=== PATIENT | female | born 1960 | race African-American/Black ===

== ENCOUNTER 2019-01-11 09:43 | Emergency (ER) | payer OTHER ==
[~2019-01-11] VITALS: Ht 165.1 cm; Wt 80.9 kg
[2019-01-11] MEDS ORDERED: HIGH CHOLESTEROL MED PO (10:09)
[2019-01-11] MEDS ORDERED: HTN MED PO (10:09)
[2019-01-11] MEDS ORDERED: [UNRECOGNIZED DRUG - REMARK] PO (10:09)
[2019-01-11 10:19] LABS: GLUCOSE,POINT OF CARE 137 MG/DL (70-110)
[2019-01-11] MEDS ORDERED: SODIUM CHLORIDE 0.9% 1,000 ML IV ONE (11:45)
[2019-01-11] MEDS ORDERED: LIDOCAINE 5% TRANSDERMAL PATCH TD ONE (11:45)
[2019-01-11] MEDS ORDERED: KETOROLAC TROMETHAMINE 30 MG/ML VIAL IVP ONE (11:45)
[2019-01-11] MEDS ORDERED: ACETAMINOPHEN 500 MG TABLET PO ONE (11:45)
[2019-01-11 11:58] LABS: BASOPHILS % (AUTO) 0.4 % (0.0-2.0); HEMATOCRIT 40.1 % (36-46); HEMOGLOBIN 12.8 g/dL (12.0-16.0); LYMPHOCYTES # (AUTO) 2.9 K/uL (1.0-4.8); LYMPHOCYTES % (AUTO) 33.7 % (22.0-44.0); MEAN CORPUSCULAR HEMOGLOBIN 29.6 pg (26.0-34.0); MEAN CORPUSCULAR HGB CONC 31.9 G/dL (31.0-37.0); MEAN CORPUSCULAR VOLUME 93 fL (80-100); MONOCYTES # (AUTO) 0.6 K/uL (0.1-1.0); MONOCYTES % (AUTO) 7.4 % (2.0-9.0); NEUTROPHILS % (AUTO) 57.5 % (40.0-70.0); PLATELET COUNT (AUTO) 414 K/uL (150-450); RED BLOOD CELL COUNT(AUTO) 4.33 MIL/uL (4.00-5.20)
[2019-01-11] MEDS ORDERED: SODIUM CHLORIDE 0.9% 100 ML ONE (12:08)
[2019-01-11] MEDS ORDERED: IOVERSOL 350 MG/ML 100 ML VIAL ONE (12:08)
[2019-01-11 12:09] LABS: ANION GAP 7 mmol/L (8-16); CALCIUM, TOTAL 8.8 mg/dL (8.8-10.5); CARBON DIOXIDE 27 mmol/L (22-29); CHLORIDE 105 mmol/L (98-107); CREATININE 0.81 mg/dL (0.60-1.30); GLOMERULAR FILTR. RATE CALC > 60 mL/min (>60); GLUCOSE,RANDOM 134 mg/dL (70-110); POTASSIUM 3.5 mmol/L (3.5-5.1); SODIUM SERUM 139 mmol/L (136-145); UREA NITROGEN, BLOOD 12 mg/dL (7-18)
[2019-01-11 12:38] LABS: ALANINE AMINOTRANSFERASE 24 U/L (12-78); ALBUMIN 3.5 g/dL (3.4-5.0); ALKALINE PHOSPHATASE 60 U/L (46-116); ASPARTATE AMINOTRANSFERASE 20 U/L (15-37); BILIRUBIN,TOTAL 0.2 mg/dL (0.1-1.0); CREATINE KINASE, TOTAL ONLY 104 U/L (26-192); LIPASE 189 U/L (73-393); TOTAL PROTEIN, SERUM 7.5 g/dL (6.4-8.2)
[2019-01-11 13:04] LABS: APPEARANCE,URINE CLEAR (CLEAR); BILIRUBIN,URINE NEGATIVE (NEGATIVE); GLUCOSE, URINE (UA) NEGATIVE (NEGATIVE); KETONES,URINE NEGATIVE (NEGATIVE); LEUKOCYTE ESTERASE ,URINE NEGATIVE (NEGATIVE); NITRATE,URINE NEGATIVE (NEGATIVE); OCCULT BLOOD,URINE NEGATIVE (NEGATIVE); PROTEIN,URINE NEGATIVE (NEGATIVE); UROBILINOGEN,URINE 0.2 mg/dL (<=1.0)
[2019-01-11 15:05] VITALS: BP 133/84
== END 2019-01-11 15:23 | disposition home or self-care (01) ==
LOC: EMS 09:47
DX: S30.1XXA Contusion of abdominal wall, initial encounter (principal); R59.0 Localized enlarged lymph nodes; R19.7 Diarrhea, unspecified; E11.9 Type 2 diabetes mellitus without complications; E78.00 Pure hypercholesterolemia, unspecified; I10 Essential (primary) hypertension; Z88.1 Allergy status to other antibiotic agents; Z88.8 Allergy status to other drugs, medicaments and biological substances; W22.8XXA Striking against or struck by other objects, initial encounter; Y93.89 Activity, other specified; Y92.89 Other specified places as the place of occurrence of the external cause; Y99.8 Other external cause status
CPT/HCPCS: 36415; 72131; 74177; 80053; 81003; 82550; 82962; 83690; 83735; 85025; 96361; 96374; 99284; J1885; J7030; J7050; Q9967

== ENCOUNTER 2019-05-22 08:54 | Emergency (ER) | payer OTHER ==
[~2019-05-22] VITALS: Ht 165.1 cm; Wt 80.9 kg
[~2019-05-22 08:54] MED LIST: HIGH CHOLESTEROL MED PO; HTN MED PO; [UNRECOGNIZED DRUG - REMARK] PO
[2019-05-22] MEDS ORDERED: HYDR25TA PO (09:06)
[2019-05-22] MEDS ORDERED: LOSA25TA41 PO (09:06)
[2019-05-22] MEDS ORDERED: METF-960 PO (09:06)
[2019-05-22 09:11] LABS: GLUCOSE,POINT OF CARE 178 MG/DL (70-110)
[2019-05-22] MEDS: KETOROLAC TROMETHAMINE 60 MG/2 ML VIAL IM ONE (11:32)
[2019-05-22] MEDS: ACETAMINOPHEN/CODEINE 300-30 MG TABLET PO ONE (11:32)
[2019-05-22 11:36] LABS: BASOPHILS % (AUTO) 0.3 % (0.0-2.0); EOSINOPHILS % (AUTO) 0.7 % (1.0-6.0); HEMATOCRIT 40.4 % (36-46); HEMOGLOBIN 13.5 g/dL (12.0-16.0); LYMPHOCYTES # (AUTO) 2.9 K/uL (1.0-4.8); LYMPHOCYTES % (AUTO) 32.6 % (22.0-44.0); MEAN CORPUSCULAR HEMOGLOBIN 29.9 pg (26.0-34.0); MEAN CORPUSCULAR HGB CONC 33.4 G/dL (31.0-37.0); MEAN CORPUSCULAR VOLUME 90 fL (80-100); MONOCYTES # (AUTO) 0.6 K/uL (0.1-1.0); MONOCYTES % (AUTO) 6.8 % (2.0-9.0); NEUTROPHILS # (AUTO) 5.4 K/uL (1.8-7.7); NEUTROPHILS % (AUTO) 59.6 % (40.0-70.0); PLATELET COUNT (AUTO) 435 K/uL (150-450); RED BLOOD CELL COUNT(AUTO) 4.51 MIL/uL (4.00-5.20); RED CELL DISTRIBUTION WIDTH 14.2 % (11.5-14.5)
[2019-05-22 12:03] LABS: ANION GAP 6 mmol/L (8-16); CALCIUM, TOTAL 9.3 mg/dL (8.8-10.5); CARBON DIOXIDE 29 mmol/L (22-29); CHLORIDE 103 mmol/L (98-107); CREATININE 0.94 mg/dL (0.60-1.30); GLOMERULAR FILTR. RATE CALC > 60 mL/min (>60); GLUCOSE,RANDOM 90 mg/dL (70-110); POTASSIUM 4.1 mmol/L (3.5-5.1); SODIUM SERUM 138 mmol/L (136-145); UREA NITROGEN, BLOOD 14 mg/dL (7-18)
[2019-05-22 12:11] LABS: ALANINE AMINOTRANSFERASE 24 U/L (12-78); ALBUMIN 3.4 g/dL (3.4-5.0); ALKALINE PHOSPHATASE 75 U/L (46-116); ASPARTATE AMINOTRANSFERASE 15 U/L (15-37); BILIRUBIN,TOTAL 0.2 mg/dL (0.1-1.0); TOTAL PROTEIN, SERUM 7.7 g/dL (6.4-8.2)
[2019-05-22] MEDS: METHOCARBAMOL 750 MG TABLET PO ONE (12:17)
[2019-05-22 13:11] VITALS: BP 139/73
== END 2019-05-22 13:28 | disposition home or self-care (01) ==
LOC: EMS 08:54
DX: M54.6 Pain in thoracic spine (principal); E11.65 Type 2 diabetes mellitus with hyperglycemia; E78.00 Pure hypercholesterolemia, unspecified; I10 Essential (primary) hypertension; Z90.89 Acquired absence of other organs; Z79.84 Long term (current) use of oral hypoglycemic drugs; Z88.1 Allergy status to other antibiotic agents
CPT/HCPCS: 36415; 71045; 80053; 82962; 84484; 85025; 93005; 96372; 99285; J1885

== ENCOUNTER 2022-02-05 09:37 | Emergency (ER) | payer OTHER ==
[~2022-02-05] VITALS: Ht 160 cm; Wt 89.8 kg
[~2022-02-05 09:37] MED LIST changes: -HIGH CHOLESTEROL MED PO; -HTN MED PO; +HYDR25TA2 PO; +LOSA-381 PO; +METF-1211 PO; -[UNRECOGNIZED DRUG - REMARK] PO
[2022-02-05 09:55] LABS: GLUCOSE,POINT OF CARE 215 MG/DL (70-110)
[2022-02-05] MEDS ORDERED: CHOL10002 PO (09:57)
[2022-02-05] MEDS ORDERED: GLIP5TAB12 PO (09:57)
[2022-02-05] MEDS ORDERED: AMLO-257 PO (09:57)
[2022-02-05] MEDS ORDERED: CHL25 PO (09:57)
[2022-02-05] MEDS ORDERED: LISI-663 PO (09:57)
[2022-02-05] MEDS ORDERED: LINA5TAB PO (09:57)
[2022-02-05] MEDS ORDERED: ATOR-2 PO (09:57)
[2022-02-05] MEDS ORDERED: CYCL-397 PO (09:57)
[2022-02-05] MEDS ORDERED: METF-910 PO (09:57)
[2022-02-05] MEDS ORDERED: CARV6 PO (09:57)
[2022-02-05 10:26] LABS: COVID AG,FIA SOURCE NASOPHARYNGEAL
[2022-02-05 10:28] LABS: BASOPHILS % (AUTO) 0.7 % (0.0-2.0); EOSINOPHILS % (AUTO) 0.9 % (1.0-6.0); HEMATOCRIT 40.6 % (36-46); HEMOGLOBIN 13.2 g/dL (12.0-16.0); LYMPHOCYTES # (AUTO) 2.5 K/uL (1.0-4.8); MEAN CORPUSCULAR HEMOGLOBIN 29.4 pg (26.0-34.0); MEAN CORPUSCULAR HGB CONC 32.5 G/dL (31.0-37.0); MEAN CORPUSCULAR VOLUME 90 fL (80-100); MONOCYTES # (AUTO) 0.5 K/uL (0.1-1.0); MONOCYTES % (AUTO) 5.7 % (2.0-9.0); NEUTROPHILS # (AUTO) 5.1 K/uL (1.8-7.7); NEUTROPHILS % (AUTO) 61.7 % (40.0-70.0); PLATELET COUNT (AUTO) 412 K/uL (150-450); RED BLOOD CELL COUNT(AUTO) 4.49 MIL/uL (4.00-5.20); RED CELL DISTRIBUTION WIDTH 14.6 % (11.5-14.5)
[2022-02-05 10:30] LABS: APPEARANCE,URINE CLEAR (CLEAR); BILIRUBIN,URINE NEGATIVE (NEGATIVE); GLUCOSE, URINE (UA) NEGATIVE (NEGATIVE); KETONES,URINE NEGATIVE (NEGATIVE); LEUKOCYTE ESTERASE ,URINE NEGATIVE (NEGATIVE); NITRATE,URINE NEGATIVE (NEGATIVE); OCCULT BLOOD,URINE TRACE (NEGATIVE); PH,URINE 5.5 (5.0-8.0); PROTEIN,URINE NEGATIVE (NEGATIVE); SPECIFIC GRAVITIY, URINE 1.003 (1.003-1.030); UROBILINOGEN,URINE <=1.0 mg/dL (<=1.0)
[2022-02-05 10:38] LABS: ANION GAP 3 mmol/L (8-16); CALCIUM, TOTAL 9.1 mg/dL (8.8-10.5); CARBON DIOXIDE 29 mmol/L (22-29); CHLORIDE 104 mmol/L (98-107); CREATININE 0.94 mg/dL (0.60-1.30); GLOMERULAR FILTR. RATE CALC > 60 mL/min (>60); GLUCOSE,RANDOM 232 mg/dL (70-110); POTASSIUM 3.3 mmol/L (3.5-5.1); SODIUM SERUM 136 mmol/L (136-145); UREA NITROGEN, BLOOD 8 mg/dL (7-18)
[2022-02-05 10:44] LABS: ALANINE AMINOTRANSFERASE 26 U/L (12-78); ALBUMIN 3.5 g/dL (3.4-5.0); ALKALINE PHOSPHATASE 78 U/L (46-116); ASPARTATE AMINOTRANSFERASE 23 U/L (15-37); BILIRUBIN,TOTAL 0.2 mg/dL (0.1-1.0); TOTAL PROTEIN, SERUM 7.7 g/dL (6.4-8.2)
[2022-02-05 10:49] LABS: LACTIC ACID 2.5 mmol/L (0.4-2.0)
[2022-02-05] MEDS ORDERED: SODIUM CHLORIDE 0.9% 2,700 ML IV ONE (11:00)
[2022-02-05 11:15] LABS: BACTERIA,URINE None Seen /HPF (None Seen); RBC,URINE None Seen /HPF (0-2); SQUAMOUS EPITHELIAL CELL,UR Few /LPF (None Seen); WBC,URINE None Seen /HPF (0-5)
[2022-02-05] MEDS ORDERED: FLUCONAZOLE 150 MG TABLET PO ONE (12:45)
[2022-02-05] MEDS ORDERED: CEFD300C18 PO (13:05)
[2022-02-05 13:35] VITALS: BP 153/91
== END 2022-02-05 13:48 | disposition home or self-care (01) ==
LOC: EMS 09:41
DX: N39.0 Urinary tract infection, site not specified (principal); N81.10 Cystocele, unspecified; R91.1 Solitary pulmonary nodule; E11.9 Type 2 diabetes mellitus without complications; E78.00 Pure hypercholesterolemia, unspecified; I10 Essential (primary) hypertension; Z90.49 Acquired absence of other specified parts of digestive tract; Z88.8 Allergy status to other drugs, medicaments and biological substances; Z20.822 Contact with and (suspected) exposure to COVID-19
CPT/HCPCS: 74176; 80053; 81001; 82962; 83605; 85025; 93005; 96360; 99285; 36415-L1; 36415-TC